=== PATIENT | male | born 1975 | race Asian ===

== ENCOUNTER 2017-09-22 11:37 | Emergency (ER) | payer OTHER, SELFPAY ==
[2017-09-22 11:49] VITALS: BP 159/100; PULSE 66; RESP 16; TEMP 36.8; O2SAT 98; BMI 26.9
[2017-09-22] MEDS: TET,DIPH,PERTUSS(ACELL),VAC/PF 0.5 ML SYRINGE IM (12:13)
[2017-09-22 12:44] VITALS: BP 150/83; PULSE 69; RESP 14; O2SAT 99
--- NOTE | 2017-09-22 12:56 | ED.SKABFB ---
HPI - Skin/Abscess/Foreign Bdy <Bryanna Pantoja PA-C - Last Filed: 09/22/17 20:39> General Chief complaint: Wound/Laceration Stated complaint: SAW ACCIDENT Time Seen by Provider: 09/22/17 12:57 Source: patient Mode of arrival: ambulatory Limitations: no limitations History of Present Illness HPI narrative: This healthy 41-year-old male was using a grain trimmer at work when it caught on some kings or branches and bounced onto his thigh. He was wearing work pants and long stern, but it went through and cut into his skin. He denies any other injury, states he was able to walk fine, no weakness or paresthesia in the leg. Thinks he needs stitches. He does not know the date of his last tetanus vaccine Related Data Allergies Allergy/AdvReac Type Severity Reaction Status Date / Time No Known Drug Allergies Allergy Verified 09/22/17 12:13 Review of Systems <Bryanna Pantoja PA-C - Last Filed: 09/22/17 20:39> Review of Systems All systems reviewed & are unremarkable except as noted in HPI and below Exam <Bryanna Pantoja PA-C - Last Filed: 09/22/17 20:39> Narrative Exam Narrative: GENERAL APPEARANCE: Patient sitting comfortably, in no distress. LUNGS: Clear to auscultation bilaterally. HEART: Rate and rhythm regular without murmur, normal S1 and S2, no S3 or S4. DERMATOLOGIC: On the right thigh just lateral and proximal to the knee there are 3 irregular wounds, nearly continguous. Most proximal is a 0.5 cm long by 0.3 cm wide 2 mm depth laceration. Middle wound 1 cm long by 3-4mm with and 3 mm depth. Distal wound is 1.2 cm long by 8 mm depth by 3-4 mm depth. None are actively bleeding. In the distal wound there is a tiny bit of fat exposed but no visible muscle, tendon or bone. NEUROVASCULAR: Right lower extremity is warm and pink, sensation grossly intact Initial Vital Signs Initial Vital Signs: Vital Signs Temperature 98.3 F 09/22/17 11:49 Pulse Rate 66 09/22/17 11:49 Respiratory Rate 16 09/22/17 11:49 Blood Pressure 159/100 H 09/22/17 11:49 Pulse Oximetry 98 09/22/17 11:49 <DO Margaret Green Last Filed: 09/23/17 08:52> Initial Vital Signs Initial Vital Signs: Vital Signs Temperature 98.3 F 09/22/17 11:49 Pulse Rate 66 09/22/17 11:49 Respiratory Rate 16 09/22/17 11:49 Blood Pressure 159/100 H 09/22/17 11:49 Pulse Oximetry 98 09/22/17 11:49 Procedures <Bryanna Pantoja PA-C - Last Filed: 09/22/17 20:39> Laceration Repair Laceration 1: Site: lower extremity Side (If applicable): right Size (cm): 2.8 Description: linear, irregular and clean Depth: simple, single layer Local Anesthetic: lidocaine 1% and with epi Amount of anesthesia used (mL): 7 Pre-repair: wound explored, irrigated extensively and deep structures intact Skin layer closed with: nylon Size (cm): 4-0 and 5-0 Number of sutures: 8 Technique: simple, interrupted Technique: simple, interrupted Size: 4-0 and 5-0 (There are 3 nearly contiguous lacerations as described in EXAM) Course <Bryanna Pantoja PA-C - Last Filed: 09/22/17 20:39> Orders Ordered: Discontinued Medications Diphtheria/Tetanus/Acell Pertussis (Adacel) 0.5 ml IM .ONCE ONE Stop: 09/22/17 12:10 Last Admin: 09/22/17 12:13 Dose: 0.5 ml Ibuprofen (Advil) 800 mg PO NOW ONE Stop: 09/22/17 13:12 Last Admin: 09/22/17 13:16 Dose: 800 mg Oxycodone/Acetaminophen (Percocet 5/325) 1 tab PO NOW ONE Stop: 09/22/17 13:12 Last Admin: 09/22/17 13:17 Dose: 1 tab Vital Signs - 8 hr 09/22/17 12:44 09/22/17 13:49 09/22/17 14:29 Pulse Rate 69 69 Respiratory Rate 14 15 Blood Pressure 152/82 H Blood Pressure [Right Arm] 150/83 H 152/106 H Pulse Oximetry 99 97 <DO Margaret Green Last Filed: 09/23/17 08:52> Orders Ordered: Discontinued Medications Diphtheria/Tetanus/Acell Pertussis (Adacel) 0.5 ml IM .ONCE ONE Stop: 09/22/17 12:10 Last Admin: 09/22/17 12:13 Dose: 0.5 ml Ibuprofen (Advil) 800 mg PO NOW ONE Stop: 09/22/17 13:12 Last Admin: 09/22/17 13:16 Dose: 800 mg Oxycodone/Acetaminophen (Percocet 5/325) 1 tab PO NOW ONE Stop: 09/22/17 13:12 Last Admin: 09/22/17 13:17 Dose: 1 tab Vital Signs - 8 hr 09/22/17 12:44 09/22/17 13:49 09/22/17 14:29 Pulse Rate 69 69 Respiratory Rate 14 15 Blood Pressure 152/82 H Blood Pressure [Right Arm] 150/83 H 152/106 H Pulse Oximetry 99 97 Discharge Plan Departure Patient Disposition: Home, Self-Care Clinical Impression: Laceration Discharge Date/Time: 09/22/17 14:30 Interventions: ED Discharge Assessment Last Done: 09/22/17 14:29 Instructions: DI for Laceration Repair Activity Restrictions/Additional Instructions: Monitor for signs of infection and return right away or see your PCP if any. Otherwise, keep the wound clean and dry, bandaged while working. Follow up with your PCP in about 10 days for suture removal. Take ibuprofen 3-4 [id number] tabs (6-800 mg) every 8 hr for pain for the next couple of days, then as needed Referrals: Blu Nascimento DO [Primary Care Provider] - <Estrellita Roche DO - Last Filed: 09/23/17 08:52> Cosign ED Attending Heathature Attestation: I was immediately available in the department for consultation. Documentation has been reviewed. I agree with assessment and plan.
[2017-09-22] MEDS: IBUPROFEN 400 MG TABLET 800 MG PO (13:16)
[2017-09-22] MEDS: OXYCODONE/ACETAMINOPHEN 5/325 TABLET 1 TAB PO (13:17)
[2017-09-22 13:49] VITALS: BP 152/106
[2017-09-22 14:29] VITALS: BP 152/82; PULSE 69; RESP 15; O2SAT 97
== END 2017-09-22 14:30 | disposition home or self-care (01) ==
PROVIDERS: Emergency Provider Internal Medicine; PCP Family Medicine
DX: S71.111A Laceration without foreign body, right thigh, initial encounter (principal); W29.3XXA Contact with powered garden and outdoor hand tools and machinery, initial encounter
CPT/HCPCS: 12002; 90471; 99283; 90715